=== PATIENT | female | born 1930 | race Caucasian/White ===

== ENCOUNTER → 2016-11-20 | Outpatient (REF) | payer MEDICARE ==
[~2016-11-20] MED LIST: /WARF25TA OR; ACET50TA PO; DOCU100C PO; LEVO75TA3 PO; PERC5TAB PO; POTA10TA PO
[2016-11-20 17:13] LABS: CALCIUM LEVEL 9.7 MG/DL (8.8-10.2); CREATININE FOR GFR 1.46 MG/DL (0.55-1.02); GLOMERULAR FILTRATION RATE 36.3 (>32); POTASSIUM SERUM 4.4 MEQ/L (3.5-5.1)
== END ==
LOC: M SFHCCLAY 13:32
PROVIDERS: ATTEND Family Medicine
DX: I10 Essential (primary) hypertension (principal); E11.9 Type 2 diabetes mellitus without complications
CPT/HCPCS: 80048; 81001; 82043; 83036; G0463

== ENCOUNTER → 2017-03-31 | Outpatient (CLI) | payer MEDICARE ==
--- NOTE | 2017-03-31 20:23 | ECHO ---
DATE OF PROCEDURE: 03/31/2017 REFERRING PHYSICIAN: Dr. Phuc Hassan The study was performed on 03/31/2017 on an outpatient basis for indication heart murmur. The patient measures 150 cm and weighs 67 kg. DIMENSIONS: IVS: 1.3 LV: 3.8 LVPW: 1.3 LA: 4.2 Aorta: 3.2 FINDINGS: The study is of rather difficult technical quality. Left ventricle is of normal size and hyperdynamic contractility, estimated LVEF 70-75%. Mild LVH is noted. Right ventricle appears normal. Left atrium is severely enlarged. Right atrium is normal size. Aortic valve is tricuspid, it is mildly sclerotic but mobility is preserved. Mitral valve is poorly visualized. It is obscured by very prominent calcifications in bases in both mitral leaflets, especially at the base of posterior mitral leaflet. There is very large dense calcifications that measures 2.2 x 1.2 cm in diameter. I cannot provide much information on leaflet mobility. Tricuspid valve appears normal. Pulmonic valve was not well seen. No pericardial effusion is noted. Inferior vena cava is normal size. Aortic root is normal. Aortic arch and abdominal aorta were not well seen. Doppler interrogation of aortic valve reveals no stenosis and trace insufficiency. There is probably moderately severe mitral insufficiency and mild mitral stenosis with mean gradient across the mitral valve 4 and peak gradient 11 mmHg. Trace tricuspid insufficiency is seen. Calculated pulmonary artery pressure is within normal limits. Mitral inflow pattern and tissue Doppler imaging of mitral annulus revealed grade 2 diastolic dysfunction with very low tissue Doppler velocities of mitral annulus. CONCLUSIONS: 1. The study is of acceptable technical quality. 2. Normal left ventricle (LV) size with mild left ventricular hypertrophy (LVH) and hyperdynamic LV systolic function. Grade 2 diastolic dysfunction. 3. Aortic sclerosis but no significant stenosis and only trace insufficiency. 4. Very dramatic calcifications in the mitral valve with resulting moderately severe insufficiency and mild stenosis. 5. Likely normal central venous pressure and normal pulmonary artery pressure. COMMENTS: Subacute bacterial endocarditis (SBE) prophylaxis is not recommended. 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 [facility]
== END ==
LOC: M CARPUL 09:24
PROVIDERS: ATTEND Family Medicine
DX: R01.1 Cardiac murmur, unspecified (principal)

== ENCOUNTER → 2017-07-01 | Outpatient (REF) | payer MEDICARE ==
[2017-07-01 16:48] LABS: HEMATOCRIT 38.1 % (36.0-47.0); HEMOGLOBIN 12.3 g/dl (12.0-16.0); MEAN CORPUSCULAR HEMOGLOBIN 30.6 pg (27.0-33.0); MEAN CORPUSCULAR HGB CONC 32.3 g/dl (32.0-36.5); MEAN CORPUSCULAR VOLUME 94.8 fl (80.0-96.0); PLATELET COUNT, AUTOMATED 231 10^3/uL (150-450); RED BLOOD COUNT 4.02 10^6/uL (4.00-5.40); RED CELL DISTRIBUTION WIDTH 12.6 % (11.5-14.5)
[2017-07-01 17:13] LABS: ESTIMATED AVERAGE GLUCOSE 128 MG/DL (60-110); HEMOGLOBIN A1c 6.1 %
[2017-07-01 17:20] LABS: ANION GAP 9 MEQ/L (8-16); BLOOD UREA NITROGEN 22 MG/DL (7-18); CALCIUM LEVEL 8.8 MG/DL (8.8-10.2); CARBON DIOXIDE LEVEL 27 MEQ/L (21-32); CHLORIDE LEVEL 105 MEQ/L (98-107); CREATININE FOR GFR 1.33 MG/DL (0.55-1.02); GLOMERULAR FILTRATION RATE 40.4 (>32); GLUCOSE, FASTING 100 MG/DL (83-110); POTASSIUM SERUM 4.5 MEQ/L (3.5-5.1); SODIUM LEVEL 141 MEQ/L (136-145)
== END ==
LOC: M SFHCCLAY 13:31
DX: J45.20 Mild intermittent asthma, uncomplicated (principal); R06.09 Other forms of dyspnea; I34.0 Nonrheumatic mitral (valve) insufficiency; E11.9 Type 2 diabetes mellitus without complications; Z23 Encounter for immunization
CPT/HCPCS: 84443

== ENCOUNTER → 2017-11-05 | Outpatient (CLI) | payer MEDICARE | LOC: M CLY 12:20 | DX: M85.852 Other specified disorders of bone density and structure, left thigh (principal); Z98.890 Other specified postprocedural states | CPT/HCPCS: 73502; G0463 ==

== ENCOUNTER → 2018-02-02 | Outpatient (REF) | payer MEDICARE ==
[2018-02-02 16:49] LABS: HEMATOCRIT 36.3 % (36.0-47.0); HEMOGLOBIN 12.1 g/dl (12.0-15.5); MEAN CORPUSCULAR HEMOGLOBIN 30.2 pg (27.0-33.0); MEAN CORPUSCULAR HGB CONC 33.3 g/dl (32.0-36.5); MEAN CORPUSCULAR VOLUME 90.5 fl (80.0-96.0); PLATELET COUNT, AUTOMATED 241 10^3/uL (150-450); RED BLOOD COUNT 4.01 10^6/uL (4.00-5.40); RED CELL DISTRIBUTION WIDTH 12.6 % (11.5-14.5); WHITE BLOOD COUNT 6.5 10^3/uL (4.0-10.0)
[2018-02-02 18:10] LABS: ALBUMIN 3.8 GM/DL (3.2-5.2); ALBUMIN/GLOBULIN RATIO 1.09 (1.00-1.93); ALKALINE PHOSPHATASE 66 U/L (45-117); ALT/SGPT 19 U/L (12-78); ANION GAP 10 MEQ/L (8-16); AST/SGOT 17 U/L (7-37); BILIRUBIN,TOTAL 0.6 MG/DL (0.2-1.0); BLOOD UREA NITROGEN 22 MG/DL (7-18); CALCIUM LEVEL 9.4 MG/DL (8.8-10.2); CARBON DIOXIDE LEVEL 26 MEQ/L (21-32); CHLORIDE LEVEL 101 MEQ/L (98-107); CREATININE FOR GFR 1.38 MG/DL (0.55-1.30); FREE T4 1.66 NG/DL (0.76-1.46); GLOMERULAR FILTRATION RATE 38.7 (>32); GLUCOSE, FASTING 119 MG/DL (70-100); POTASSIUM SERUM 3.8 MEQ/L (3.5-5.1); SODIUM LEVEL 137 MEQ/L (136-145); THYROID STIMULATING HORMONE 0.032 uIU/ML (0.358-3.740); TOTAL PROTEIN 7.3 GM/DL (6.4-8.2)
== END ==
LOC: M SFHCCLAY 09:43
DX: R63.4 Abnormal weight loss (principal); K86.2 Cyst of pancreas
CPT/HCPCS: 84443

== ENCOUNTER → 2018-02-02 | Outpatient (CLI) | payer MEDICARE | LOC: M CLY 10:34 | DX: R91.8 Other nonspecific abnormal finding of lung field (principal); M41.84 Other forms of scoliosis, thoracic region; R63.4 Abnormal weight loss | CPT/HCPCS: 71046; 84443 ==

== ENCOUNTER → 2018-02-04 | Outpatient (CLI) | payer MEDICARE ==
[~2018-02-04] MED LIST changes: -/WARF25TA OR; -ACET50TA PO; -DOCU100C PO; +GASTROGRAFIN SOLUTION 30ML (Q9963) As Ordered; +ISOVUE-370 76% 100ML VIAL (Q9967) As Ordered; -LEVO75TA3 PO; -PERC5TAB PO; -POTA10TA PO
== END ==
LOC: M RAD 13:29
DX: R63.4 Abnormal weight loss (principal); R93.8 Abnormal findings on diagnostic imaging of other specified body structures; J84.10 Pulmonary fibrosis, unspecified; K57.30 Diverticulosis of large intestine without perforation or abscess without bleeding; K86.2 Cyst of pancreas; K55.1 Chronic vascular disorders of intestine
CPT/HCPCS: Q9963

== ENCOUNTER → 2018-06-23 | Outpatient (REF) | payer MEDICARE ==
[2018-06-23 18:33] LABS: ANION GAP 8 MEQ/L (8-16); BLOOD UREA NITROGEN 27 MG/DL (7-18); CALCIUM LEVEL 9.1 MG/DL (8.8-10.2); CARBON DIOXIDE LEVEL 28 MEQ/L (21-32); CHLORIDE LEVEL 106 MEQ/L (98-107); CREATININE FOR GFR 1.52 MG/DL (0.55-1.30); FREE T4 1.34 NG/DL (0.76-1.46); GLOMERULAR FILTRATION RATE 34.5 (>32); GLUCOSE, FASTING 137 MG/DL (70-100); POTASSIUM SERUM 3.9 MEQ/L (3.5-5.1); SODIUM LEVEL 142 MEQ/L (136-145); THYROID STIMULATING HORMONE 0.115 uIU/ML (0.358-3.740)
[2018-06-23 19:09] LABS: ESTIMATED AVERAGE GLUCOSE 137 MG/DL (60-110); HEMOGLOBIN A1c 6.4 %
== END ==
LOC: M SFHCCLAY 10:51
DX: E03.9 Hypothyroidism, unspecified (principal); I10 Essential (primary) hypertension; E11.9 Type 2 diabetes mellitus without complications
CPT/HCPCS: 84443

== ENCOUNTER → 2018-08-11 | Outpatient (REF) | payer MEDICARE ==
[~2018-08-11] MED LIST changes: +/WARF25TA OR; +ACET50TA PO; +DOCU100C PO; -GASTROGRAFIN SOLUTION 30ML (Q9963) As Ordered; -ISOVUE-370 76% 100ML VIAL (Q9967) As Ordered; +LEVO75TA3 PO; +PERC5TAB PO; +POTA10TA PO
[2018-08-11 12:13] LABS: CALCIUM LEVEL 9.3 MG/DL (8.8-10.2); CREATININE FOR GFR 1.47 MG/DL (0.55-1.30); FREE T4 1.07 NG/DL (0.76-1.46); GLOMERULAR FILTRATION RATE 35.9 (>32); POTASSIUM SERUM 3.7 MEQ/L (3.5-5.1); THYROID STIMULATING HORMONE 1.73 uIU/ML (0.358-3.740)
== END ==
LOC: M SFHCCLAY 09:36
PROVIDERS: ATTEND Family Medicine
DX: E03.9 Hypothyroidism, unspecified (principal)

== ENCOUNTER → 2018-11-05 | Outpatient (CLI) | payer MEDICARE ==
[~2018-11-05] MED LIST changes: -/WARF25TA OR; -ACET50TA PO; +COUM1TAB18 OR; +MAPA500T17 PO
--- NOTE | 2018-11-05 11:45 | REP ---
REASON FOR EXAM: Cough. COMPARISON: Multiple, the latest 02/02/2018. Cardiomediastinal silhouette is unchanged. Mitral annular calcifications are noted status quo. The heart is not enlarged. There is parenchymal fibrotic change status quo. No acute patchy parenchymal opacities or pleural effusions have developed. There is no change in the osseous structures. IMPRESSION: Stable chronic changes as described above.
== END ==
LOC: M CLY 10:47
PROVIDERS: ATTEND Family Medicine
DX: R05 Cough (principal); E11.9 Type 2 diabetes mellitus without complications; E03.9 Hypothyroidism, unspecified; I10 Essential (primary) hypertension

== ENCOUNTER → 2018-11-05 | Outpatient (REF) | payer MEDICARE ==
[2018-11-05 17:09] LABS: HEMATOCRIT 43.4 % (36.0-47.0); HEMOGLOBIN 14.3 g/dl (12.0-15.5); MEAN CORPUSCULAR HEMOGLOBIN 30.4 pg (27.0-33.0); MEAN CORPUSCULAR HGB CONC 32.9 g/dl (32.0-36.5); MEAN CORPUSCULAR VOLUME 92.3 fl (80.0-96.0); PLATELET COUNT, AUTOMATED 268 10^3/uL (150-450); WHITE BLOOD COUNT 7.7 10^3/uL (4.0-10.0)
[2018-11-05 17:27] LABS: BILIRUBIN,TOTAL 0.6 MG/DL (0.2-1.0); CALCIUM LEVEL 9.7 MG/DL (8.8-10.2); CREATININE FOR GFR 1.49 MG/DL (0.55-1.30); FREE T4 1.34 NG/DL (0.76-1.46); GLOMERULAR FILTRATION RATE 35.3 (>32); POTASSIUM SERUM 3.5 MEQ/L (3.5-5.1); THYROID STIMULATING HORMONE 2.05 uIU/ML (0.358-3.740); TOTAL PROTEIN 7.9 GM/DL (6.4-8.2)
[2018-11-05 17:43] LABS: MAU/CREAT RATIO 85.9 MCG/MG (0.0-30.0)
== END ==
LOC: M SFHCCLAY 10:40
PROVIDERS: ATTEND Family Medicine
DX: E11.9 Type 2 diabetes mellitus without complications (principal); E03.9 Hypothyroidism, unspecified; I10 Essential (primary) hypertension

== ENCOUNTER → 2019-02-18 | Outpatient (REF) | payer MEDICARE ==
[2019-02-18 16:54] LABS: CALCIUM LEVEL 9.8 MG/DL (8.8-10.2); CHOLESTEROL RISK RATIO 3.89 (<5); CREATININE FOR GFR 1.7 MG/DL (0.55-1.30); GLOMERULAR FILTRATION RATE 30.3 (>32); POTASSIUM SERUM 3.8 MEQ/L (3.5-5.1)
[2019-02-18 17:15] LABS: MALB URINE SIEMENS 84.4 MG/L; MAU/CREAT RATIO 59.8 MCG/MG (0.0-30.0)
[2019-02-18 17:31] LABS: HEMOGLOBIN A1c 6.9 %
== END ==
LOC: M SFHCCLAY 11:13
PROVIDERS: ATTEND Family Medicine
DX: E11.9 Type 2 diabetes mellitus without complications (principal); G24.01 Drug induced subacute dyskinesia; E03.9 Hypothyroidism, unspecified; R35.0 Frequency of micturition
CPT/HCPCS: 80048; 80061; 81002; 82043; 83036; 87086; G0463

== ENCOUNTER 2019-05-21 23:11 | Inpatient (IN) | payer MEDICARE ==
[~2019-05-21] VITALS: Ht 162.6 cm; Wt 75.4 kg
--- NOTE | 2019-05-21 23:36 | REPVR ---
PROCEDURE INFORMATION: Exam: CT Head Without Contrast Exam date and time: 05/21/2019 11:25 PM Age: 89 years old Clinical history: Altered mental status/memory loss; Confusion or disorientation; Additional Info: AMS TECHNIQUE: Imaging protocol: Computed tomography of the head without contrast. Radiation optimization: All CT scans at this facility use at least one of these dose optimization techniques: automated exposure control; mA and/or kV adjustment per patient size (includes targeted exams where dose is matched to clinical indication); or iterative reconstruction. Other technique: STROKE PROTOCOL was implemented. COMPARISON: CT Head without contrast 05/28/2012 5:46 AM FINDINGS: Limitations: Examination is limited by motion artifact. Brain: Hypodensity of the right insula and anterior right temporal lobe. Chronic ischemic changes in the right felix radiata. 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 Diffuse cerebral atrophy consistent with patient's age. No acute intracranial hemorrhage. Midline shift: No midline shift. Ventricles: Ventricles are in proportion to the degree of atrophy. Bones/joints: Unremarkable. No acute fracture. Sinuses: Visualized sinuses are unremarkable. No fluid levels. Mastoid air cells: Visualized mastoid air cells are well aerated. Soft tissues: Unremarkable. Vasculature: Atherosclerotic calcification of the carotid siphon. IMPRESSION: 1. Limited evaluation. 2. Hypodensity of the right insula and anterior right temporal lobe. It is unclear if this represents artifact versus acute ischemia. Correlate with history. 3. Chronic ischemic changes in the right felix radiata. Unchanged from prior. 4. 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 New from prior. ASSESSMENT: ASPECTS ([place] Stroke Program Early CT Score) is 8. Electronically signed by: Max Li On 05/21/2019 23:35:49 PM
[2019-05-21 23:43] LABS: HEMATOCRIT 37.7 % (36.0-47.0); HEMOGLOBIN 12.5 g/dl (12.0-15.5); MEAN CORPUSCULAR HEMOGLOBIN 30.9 pg (27.0-33.0); MEAN CORPUSCULAR HGB CONC 33.2 g/dl (32.0-36.5); MEAN CORPUSCULAR VOLUME 93.1 fl (80.0-96.0); PLATELET COUNT, AUTOMATED 277 10^3/uL (150-450); RED BLOOD COUNT 4.05 10^6/uL (4.00-5.40)
[2019-05-21] MEDS ORDERED: LIDOCAINE 2% 5ML JELLY UROJET TOP ONE (23:45)
[2019-05-21 23:57] LABS: APPEARANCE, URINE CLEAR (CLEAR); BACTERIA, URINE AUTO NEGATIVE (NEGATIVE); BILIRUBIN, URINE AUTO NEGATIVE (NEGATIVE); BLOOD, URINE BLOOD 1+ (NEGATIVE); COLOR, URINE YELLOW (YELLOW); GLUCOSE, URINE (UA) AUTO NEGATIVE (NEGATIVE); KETONE, URINE AUTO NEGATIVE (NEGATIVE); LEUKOCYTE ESTERASE, URINE AUTO NEGATIVE (NEGATIVE); MUCUS, URINE SMALL (NEGATIVE); NITRITE, URINE AUTO NEGATIVE (NEGATIVE); PROTEIN, URINE AUTO NEGATIVE (NEGATIVE); RBC, URINE AUTO 3 /HPF (0-3); SPECIFIC GRAVITY URINE AUTO 1.018 (1.002-1.035); SQUAMOUS EPITHELIAL CELL UR AU 0 /HPF (0-6); UROBILINOGEN, URINE AUTO 0.2 mg/dL (0.0-2.0); WBC, URINE AUTO 1 /HPF (0-3)
[2019-05-21 23:58] LABS: WHITE BLOOD COUNT 11.7 10^3/uL (4.0-10.0)
[2019-05-22 00:02] LABS: INR 1.12; PROTHROMBIN TIME 14.1 SECONDS (11.8-14.0)
[2019-05-22 00:03] LABS: PARTIAL THROMBOPLASTIN TIME 26.5 SECONDS (25.0-38.4)
[2019-05-22 00:17] LABS: ALBUMIN 3.3 GM/DL (3.2-5.2); ALT/SGPT 19 U/L (12-78); BILIRUBIN,DIRECT < 0.1 MG/DL (0.0-0.2); BILIRUBIN,TOTAL 0.3 MG/DL (0.2-1.0); BLOOD UREA NITROGEN 38 MG/DL (7-18); CARBON DIOXIDE LEVEL 27 MEQ/L (21-32); CHLORIDE LEVEL 105 MEQ/L (98-107); CK-MB VALUE MASS 2.6 NG/ML (<3.6); CPK CREATINE PHOSPHOKINASE 124 U/L (26-192); CREATININE FOR GFR 1.65 MG/DL (0.55-1.30); GLOMERULAR FILTRATION RATE 31.3 (>32); GLUCOSE, FASTING 182 MG/DL (70-100); POTASSIUM SERUM 3.5 MEQ/L (3.5-5.1); SODIUM LEVEL 142 MEQ/L (136-145); TROPONIN I 0.05 NG/ML (< 0.10)
[2019-05-22 00:27] LABS: ATYPICAL LYMPH 5 % (0-5); EOSINOPHILS 3 % (0-3); LYMPHOCYTES 48 % (16-44); MONOCYTES 4 % (0-5); NEUTROPHILS 40 % (28-66)
[2019-05-22 00:28] LABS: PLATELET ESTIMATE NORMAL (NORMAL)
[2019-05-22] MEDS ORDERED: SUCR1TAB56 PO ×2 (01:16)
[2019-05-22] MEDS ORDERED: FAMO1TAB11 PO (01:16)
[2019-05-22] MEDS ORDERED: GLIP5TAB8 PO (01:16)
[2019-05-22] MEDS ORDERED: HYDR25TAB PO (01:16)
[2019-05-22] MEDS ORDERED: PATIENT COMMENTS (01:16)
[2019-05-22] MEDS ORDERED: SYNT75TA PO (01:16)
[2019-05-22] MEDS ORDERED: PROBCAP14 PO (01:16)
[2019-05-22] MEDS ORDERED: AMLO5TAB6 PO (01:16)
[2019-05-22] MEDS: NS 1,000 ML IV SCH ×2 (01:56→14:46)
[2019-05-22] MEDS ORDERED: GLUCAGON FOR INJ 1 MG VIAL (J1610) SC PRN (02:00)
[2019-05-22] MEDS ORDERED: GLUCOSE 4 GM CHEW TABLET PO PRN (02:00)
[2019-05-22] MEDS ORDERED: DEXTROSE 50% 50 ML SYRINGE IV PRN (02:00)
--- NOTE | 2019-05-22 02:10 | HPEPDOC ---
General Date of Admission 05/22/19 Date of Service: May 22, 2019 Chief Complaint The patient is a 89-year-old female admitted with a reason for visit of S/S Posible Stroke. Source: Patient, Family Exam Limitations: Physical impairment Timing/Duration: 4-6 hours Severity: Severe Associated Symptoms: Unobtainable History of Present Illness Patient is 89 years old female with past mental history of hypertension, type 2 diabetes, tricuspid valve insufficiency present to the hospital unresponsive. According to family members patient was found in the bed around 10 PM unresponsive, she made some gurgling sounds, did not follow commands, had paralysis of right leg and arm. In emergency room patient was found to have mild leukocytosis, afebrile, his blood pressure was elevated to 182/80. Head CT was done and showed Hypodensity of the right insula and anterior right temporal lobe. It is unclear if this represents artifact versus acute ischemia. Chronic ischemic changes in the right felix radiata. Unchanged from prior. 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 New from previous. Home Medications Scheduled Amlodipine Besylate (Amlodipine Besylate) 5 Mg Tablet, 5 MG PO DAILY, (Reported) UNCLEAR TO WHETHER PATIENT IS TAKING THIS. IT IS AN ACTIVE PRESCRIPTION AT HER PHARMACY Famotidine (Famotidine) 20 Mg Tablet, 20 MG PO QHS, (Reported) UNCLEAR TO WHETHER PATIENT IS TAKING THIS. IT IS AN ACTIVE PRESCRIPTION AT HER PHARMACY Glipizide (Glipizide) 5 Mg Tablet, 5 MG PO DAILY, (Reported) Hydrochlorothiazide (Hydrochlorothiazide) 25 Mg Tablet, 25 MG PO DAILY, (Reported) Lactobacillus Acidophilus (Probiotic) 1 Each Capsule, 1 CAP PO DAILY, (Reported) Levothyroxine Sodium (Synthroid) 75 Mcg Tablet, 75 MCG PO DAILY, (Reported) Sucralfate (Sucralfate) 1 Gm Tablet, 1 GRAM PO TID, (Reported) Sucralfate (Sucralfate) 1 Gm Tablet, 1 GRAM PO QHS, (Reported) Miscellaneous Medications [Patient Comments] , (Reported) INFORMATION PROVIDED BY FAMILY MEMBERS. THEY STATE SHE TAKES HER MEDICATIONS DAILY. THEY PROVIDED A BAG OF MEDICATIONS THEY STATE SHE NORMALLY TAKES Allergies Coded Allergies: Sulfa (Sulfonamide Antibiotics) (Verified Allergy, Severe, throat swelling, 05/21/19) NSAIDS (Non-Steroidal Anti-Inflamma (Verified Allergy, Unknown, 05/21/19) etodolac (Verified Allergy, Unknown, 05/21/19) meloxicam (Verified Allergy, Unknown, 05/21/19) Past Medical History Medical History Type 2 diabetes, hypertension, tricuspid valve insufficiency Surgical History Cholecystectomy Family History I reviewed family history and found noncontributory Social History * Smoker: Denies Alcohol: Denies Drugs: denies A-FIB/CHADSVASC A-FIB History Current/History of A-Fib/PAF?: No Current PO Anticoag Therapy: No Review of Systems Constitutional: Reports: Other (patient is unresponsive unable to obtain) Other systems Patient is unresponsive unable to obtain Physical Examination General Exam: Positive: Other (unresponsive) Eye Exam: Positive: PERRLA ENT Exam: Positive: Atraumatic Neck Exam: Positive: Supple; Negative: JVD Chest Exam: Positive: Clear to auscultation Heart Exam: Positive: Tachycardic Telemetry: Positive: Sinus Abdomen Exam: Positive: Normal bowel sounds Extremity Exam: Negative: Clubbing, Cyanosis Skin Exam: Positive: Nl turgor and temperature Neuro Exam: Positive: Other (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, does not follow commands, no nuchal rigidity, no reflexes of right arm and right leg) Vital Signs Vital Signs Date Time Temp Pulse Resp B/P (MAP) Pulse Ox O2 Delivery O2 Flow Rate FiO2 05/22/19 01:05 110 24 148/65 (92) 98 Nasal Cannula 2.0 05/21/19 23:42 98.0 Laboratory Data Labs 24H Laboratory Tests 2 05/21/19 23:32: Bedside Glucose (Misc Panel) 178H 05/21/19 23:34: Lymphocytes # (Auto) , Nucleated Red Blood Cells % (auto) 0.0, Neutrophils 40, Lymphocytes (Manual) 48H, Monocytes (Manual) 4, Eosinophils (Manual) 3, Atypical Lymphocytes 5, Red Blood Cell Morphology NORMAL, Platelet Estimate NORMAL, Prothrombin Time 14.1H, Prothromb Time International Ratio 1.12, Activated Partial Thromboplast Time 26.5, Urine Color YELLOW, Urine Appearance CLEAR, Urine pH 5.0, Urine Specific [place] 1.018, Urine Protein NEGATIVE, Urine Glucose (Auto)(UA) NEGATIVE, Urine Ketones (Auto) NEGATIVE, Urine Blood 1+H, Urine Nitrite NEGATIVE, Urine Bilirubin NEGATIVE, Urine Urobilinogen 0.2, Urine Leukocyte Esterase (Auto) NEGATIVE, Urine WBC (Auto) 1, Urine RBC (Auto) 3, Urine Hyaline Casts (Auto) 2, Urine Bacteria (Auto) NEGATIVE, Urine Squamous Epithelial Cells 0, Urine Mucus (Auto) SMALL, Urine Sperm (Auto) , Anion Gap 10, Glomerular Filtration Rate 31.3L, Lactic Acid Level 2.3*H, Calcium Level 9.0, Total Bilirubin 0.3, Direct Bilirubin < 0.1, Aspartate Amino Transf (AST/SGOT) 16, Alanine Aminotransferase (ALT/SGPT) 19, Alkaline Phosphatase 62, Total Creatine Kinase 124, Creatine Kinase MB 2.6, Creatine Kinase MB Relative Index 2.10, Troponin I 0.05, Total Protein 7.0, Albumin 3.3, Albumin/Globulin Ratio 0.89L, Thyroid Stimulating Hormone (TSH) 3.770H CBC/BMP Laboratory Tests 05/21/19 23:34 Microbiology Microbiology 05/21/19 Blood Culture, Received Pending Assessment/Plan Patient is 89 years old female with past mental history of hypertension, type 2 diabetes, tricuspid valve insufficiency present to the hospital unresponsive. According to family members patient was found in the bed around 10 PM unresponsive, she made some gurgling sounds, did not follow commands, had paralysis of right leg and arm. In emergency room patient was found to have mild leukocytosis, afebrile, his blood pressure was elevated to 182/80. Head CT was d one and showed Hypodensity of the right insula and anterior right temporal lobe. Most likely patient developed ischemic stroke. Problems (1) Ischemic stroke diagnosed during current admission Status: Acute Problem Text: Most likely massive ischemic stroke Patient is not candidate for TPA due to advanced age MRI, MRA, ECHO Nothing by mouth for now. By mouth meds on hold Aspirin per rectum Consider neurologist consult in the morning Palliative care consult (2) Right sided weakness Status: Acute Problem Text: See above Plan / VTE VTE Prophylaxis Ordered?: Yes OSCAR MCINTYRE DO May 22, 2019 02:10
[2019-05-22 03:33] VITALS: BP 152/67
--- NOTE | 2019-05-22 06:33 | ECGEPIP ---
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
[2019-05-22 06:49] VITALS: BP 130/58
[2019-05-22] MEDS ORDERED: HumaLOG INSULIN (NovoLOG) PER UNIT SC SCH (07:30)
[2019-05-22 08:00] VITALS: BP 145/65
[2019-05-22] MEDS ORDERED: HEPARIN SOD (PORCINE) 5000 UNITS/ML VIAL SC SCH (09:00)
[2019-05-22] MEDS ORDERED: ASPIRIN 300 MG SUPP PR SCH (09:00)
[2019-05-22 10:00] VITALS: BP 164/70
--- NOTE | 2019-05-22 13:19 | IPN ---
DATE: 05/22/2019 Na is seen in progressive care unit (PCU). Her family was present. We had a good discussion. She was admitted with a massive stroke. She has dense right hemiparesis and aphasia. She has not regained consciousness since coming to the emergency room. CT scan showed acute stroke. PHYSICAL EXAMINATION: She is not responding to verbal or physical stimulation. Right hemiparesis. Labored respirations. LUNGS: Rhonchorous. HEART: Regular rhythm. ABDOMEN: Soft, nontender. EXTREMITIES: No peripheral edema. Nursing staff said her right leg moved when they were providing some nursing care. She did not move her right side for me on examination. LABORATORIES: No CBC ordered. No electrolytes ordered. Blood sugar has been in the 100s. IMPRESSION: 1. Large left hemispheric stroke with aphasia, right hemiparesis and unresponsiveness. Prognosis is poor. I discussed this frankly with the patient's daughter and grandson. She has DO NOT RESUSCITATE status. They are considering comfort measures. We are going to get a CT of the head today and continue her IV fluids. I did order laboratories for the morning. Unless she has a significant recovery, I anticipate that they will want comfort measures only status for this patient, which is appropriate.
[2019-05-22] MEDS ORDERED: SALIVA SUBSTITUTE(MOUTHKOTE) BTL MT PRN (15:00)
[2019-05-22 16:00] VITALS: BP 125/60
[2019-05-22] MEDS ORDERED: SCOPOLAMINE 1MG TRANSDERMAL PATCH TOP PRN (18:30)
[2019-05-22] MEDS ORDERED: ACETAMINOPHEN 650 MG SUPP PR PRN (18:30)
[2019-05-22] MEDS ORDERED: ONDANSETRON 4MG/2ML VIAL (J2405) IV PRN (18:30)
[2019-05-22] MEDS: MORPHINE 2 MG/ML 1ML VIAL (J2270) IV PRN (21:03)
[2019-05-23] MEDS: MORPHINE 2 MG/ML 1ML VIAL (J2270) IV PRN (02:51)
[2019-05-23] MEDS ORDERED: LEVOTHYROXINE 75MCG TABLET (0.075MG) PO SCH (06:00)
--- NOTE | 2019-05-23 06:45 | IPN ---
DATE: 05/22/2019 Na has deteriorated as the day has gone by. Nursing staff called me around 6:00 p.m. that she was tachypneic, shallow respirations, respirations were agonal. I called Na's daughter Nasrin. We discussed her deterioration. 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
--- NOTE | 2019-05-23 11:36 | IPNPDOC ---
Subjective Date Seen The patient was seen on 05/23/19. Subjective Chief Complaint/HPI stroke Events since last encounter Niece is at bedside. 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 Appears comfortable. 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 Appears comfortable. Plan/VTE VTE Prophylaxis Ordered?: No VTE Exclusion Pharmacological: Other (PIE BAKERY LABORER) VS, I&O, 24H, Fishbone Vital Signs/I&O Vital Signs Date Time Temp Pulse Resp B/P (MAP) Pulse Ox O2 Delivery O2 Flow Rate FiO2 05/22/19 17:50 2.0 05/22/19 16:39 98.4 05/22/19 16:00 89 21 125/60 (81) 99 Nasal Cannula I&O- Last 24 Hours up to 6 AM 05/23/19 06:00 Intake Total 240 ml Output Total 850 ml Balance -610 ml Laboratory Data Microbiology Microbiology 05/21/19 Blood Culture - Preliminary, Resulted No growth after 24 hours . All specim... Devorah Gan SUPERVISOR [employer] May 23, 2019 11:36
[2019-05-23] MEDS: MORPHINE SULFATE ORAL SOLN 10 MG/5 ML UD SL PRN (12:44)
--- NOTE | 2019-05-24 10:03 | IPNPDOC ---
Subjective Date Seen The patient was seen on 05/24/19. 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 no adverse events since yesterday. has prn medications. 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 Appears comfortable. Plan/VTE VTE Prophylaxis Ordered?: No VTE Exclusion Pharmacological: Other (CLINICAL LAB SPECIALIST) VS, I&O, 24H, Fishbone Vital Signs/I&O Vital Signs Date Time Temp Pulse Resp B/P (MAP) Pulse Ox O2 Delivery O2 Flow Rate FiO2 05/23/19 21:00 2.0 05/22/19 16:39 98.4 05/22/19 16:00 89 21 125/60 (81) 99 Nasal Cannula I&O- Last 24 Hours up to 6 AM 05/24/19 06:00 Intake Total 0 ml Output Total 750 ml Balance -750 ml Laboratory Data Microbiology Microbiology 05/21/19 Blood Culture - Preliminary, Resulted No Growth after 48 hours. All Specime... Devorah Gan OCEAN CLAM BOAT CAPTAIN May 24, 2019 10:03
[2019-05-24] MEDS: MORPHINE SULFATE ORAL SOLN 10 MG/5 ML UD SL PRN ×2 (11:20→18:01)
[2019-05-24] MEDS: MORPHINE 2 MG/ML 1ML VIAL (J2270) IV PRN (20:35)
[2019-05-25] MEDS: MORPHINE 2 MG/ML 1ML VIAL (J2270) IV PRN ×2 (08:51→13:41)
[2019-05-25] MEDS: LORazepam 2 MG/ML VIAL (J2060) IV PRN ×2 (12:15→14:22)
[2019-05-25] MEDS ORDERED: LORazepam 2 MG/ML VIAL (J2060) As Ordered ONE (14:17)
[2019-05-26] MEDS: MORPHINE 2 MG/ML 1ML VIAL (J2270) IV PRN ×3 (02:20→14:38)
[2019-05-26] MEDS: LORazepam 2 MG/ML VIAL (J2060) IV PRN (05:17)
--- NOTE | 2019-05-26 12:26 | IPNPDOC ---
Subjective Date Seen The patient was seen on 05/26/19. Subjective Chief Complaint/HPI She is resting comfortably today per her family. Both the family and nursing reports she was less comfortable yesterday, but they were able to work through it. There are no acute concerns today. 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 Appears comfortable. Plan/VTE VTE Prophylaxis Ordered?: No (STATE'S ATTORNEY) VTE Exclusion Pharmacological: Other (STATE'S ATTORNEY) Plan Advance Directives: DNR, Comfort care Disposition she is expected to during this admission VS, I&O, 24H, Fishbone Vital Signs/I&O Vital Signs Date Time Temp Pulse Resp B/P (MAP) Pulse Ox O2 Delivery O2 Flow Rate FiO2 05/26/19 02:20 28 05/25/19 23:03 2.0 05/25/19 13:41 Nasal Cannula 05/22/19 16:39 98.4 05/22/19 16:00 89 125/60 (81) 99 I&O- Last 24 Hours up to 6 AM 05/26/19 06:00 Intake Total 0 ml Output Total 475 ml Balance -475 ml Laboratory Data Microbiology Microbiology 05/21/19 Blood Culture - Preliminary, Resulted No Growth after 72 hours. All specime... Marvin Aleman MD May 26, 2019 12:26 pm
[2019-05-27] MEDS: MORPHINE 2 MG/ML 1ML VIAL (J2270) IV PRN ×2 (10:09→15:47)
--- NOTE | 2019-05-27 12:02 | IPNPDOC ---
Subjective Date Seen The patient was seen on 05/27/19. Subjective Chief Complaint/HPI Na remains comfortable per nursing and her family. Her family notes that her breathing is a little more rapid today. There are no acute complaints or concerns regarding her comfort. General: Reports: ROS Unobtainable Objective Physical Examination General Exam: Positive: No Acute Distress, Other (unresponsive, appears comfortable); Negative: Alert ENT Exam: Positive: Atraumatic; Negative: Mucous membr. 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 Appears comfortable. Plan/VTE VTE Prophylaxis Ordered?: No (TYPING SECRETARY) VTE Exclusion Pharmacological: Other (TYPING SECRETARY) Plan Advance Directives: DNR, Comfort care Disposition She is expected to during this admission. VS, I&O, 24H, Fishbone Vital Signs/I&O Vital Signs Date Time Temp Pulse Resp B/P (MAP) Pulse Ox O2 Delivery O2 Flow Rate FiO2 05/26/19 21:20 2.0 05/26/19 02:20 28 05/25/19 13:41 Nasal Cannula 05/22/19 16:39 98.4 05/22/19 16:00 89 125/60 (81) 99 I&O- Last 24 Hours up to 6 AM 05/27/19 06:00 Intake Total 0 ml Output Total 550 ml Balance -550 ml Laboratory Data Microbiology Microbiology 05/21/19 Blood Culture - Final, Complete NO GROWTH AFTER 5 DAYS Marvin Aleman MD May 27, 2019 12:02 pm
[2019-05-28] MEDS: MORPHINE 2 MG/ML 1ML VIAL (J2270) IV PRN ×2 (12:51→20:27)
--- NOTE | 2019-05-28 15:50 | IPNPDOC ---
Subjective Date Seen The patient was seen on 05/28/19. Subjective Chief Complaint/HPI Ms. Quiroz remains comfortable under the watchful eye of her family and the nursing staff. The family reports that they are very pleased with the support that they are getting while here. General: Reports: ROS Unobtainable Objective Physical Examination General Exam: Positive: No Acute Distress, Other (unresponsive, appears comfortable); Negative: Alert ENT Exam: Positive: Atraumatic; Negative: Mucous membr. 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 Appears comfortable. Plan/VTE VTE Prophylaxis Ordered?: No (WELDING MACHINE OPERATOR ARC) VTE Exclusion Pharmacological: Other (WELDING MACHINE OPERATOR ARC) Plan Advance Directives: DNR, Comfort care VS, I&O, 24H, Fishbone Vital Signs/I&O Vital Signs Date Time Temp Pulse Resp B/P (MAP) Pulse Ox O2 Delivery O2 Flow Rate FiO2 05/28/19 13:01 20 05/28/19 11:00 2.0 05/25/19 13:41 Nasal Cannula 05/22/19 16:39 98.4 05/22/19 16:00 89 125/60 (81) 99 I&O- Last 24 Hours up to 6 AM 05/28/19 06:00 Intake Total 0 ml Output Total 250 ml Balance -250 ml Laboratory Data Microbiology Microbiology 05/21/19 Blood Culture - Final, Complete NO GROWTH AFTER 5 DAYS Marvin Aleman MD May 28, 2019 15:50
--- NOTE | 2019-05-29 11:01 | DS.PDOC ---
Discharge Summary General Date of Admission May 22, 2019 at 1:41 am Date of Discharge 05/29/19 Primary Care Physician: Phuc Hassan MD Attending Physician: Marvin Aleman MD Discharge Summary ADMITTING DIAGNOSES: 1. Ischemic stroke. 2. Right sided weakness. DISCHARGE DIAGNOSES/CAUSE OF : 1. Ischemic stroke. PROCEDURES PERFORMED DURING STAY: None. ADMISSION HISTORY: Ms. Quiroz was brought to the emergency department after she was found by her family in the bed around 10 PM unresponsive. At that time she reportedly made some gurgling sounds, did not follow commands, and had paralysis of right leg and arm. Please see the admission history and physical for the remaining details. HOSPITAL COURSE: She was admitted to the hospital on palliative care status/comfort measures only. We were able to keep her comfortable throughout her stay here and she did ultimately . DISCHARGE CONDITION: Morbid. IMAGING: CT of the head without contrast. Vital Signs/I&Os Vital Signs Date Time Temp Pulse Resp B/P (MAP) Pulse Ox O2 Delivery O2 Flow Rate FiO2 05/28/19 20:00 2.0 05/28/19 13:01 20 05/25/19 13:41 Nasal Cannula I&O- Last 24 Hours up to 6 AM 05/29/19 06:00 Intake Total 0 ml Output Total 125 ml Balance -125 ml Microbiology Microbiology 05/21/19 Blood Culture - Final, Complete NO GROWTH AFTER 5 DAYS Discharge Medications Scheduled Amlodipine Besylate (Amlodipine Besylate) 5 Mg Tablet, 5 MG PO DAILY, (Reported) UNCLEAR TO WHETHER PATIENT IS TAKING THIS. IT IS AN ACTIVE PRESCRIPTION AT HER PHARMACY Famotidine (Famotidine) 20 Mg Tablet, 20 MG PO QHS, (Reported) UNCLEAR TO WHETHER PATIENT IS TAKING THIS. IT IS AN ACTIVE PRESCRIPTION AT HER PHARMACY Glipizide (Glipizide) 5 Mg Tablet, 5 MG PO DAILY, (Reported) Hydrochlorothiazide (Hydrochlorothiazide) 25 Mg Tablet, 25 MG PO DAILY, (Reported) Lactobacillus Acidophilus (Probiotic) 1 Each Capsule, 1 CAP PO DAILY, (Reported) Levothyroxine Sodium (Synthroid) 75 Mcg Tablet, 75 MCG PO DAILY, (Reported) Sucralfate (Sucralfate) 1 Gm Tablet, 1 GRAM PO TID, (Reported) Sucralfate (Sucralfate) 1 Gm Tablet, 1 GRAM PO QHS, (Reported) Miscellaneous Medications [Patient Comments] , (Reported) INFORMATION PROVIDED BY FAMILY MEMBERS. THEY STATE SHE TAKES HER MEDICATIONS DAILY. THEY PROVIDED A BAG OF MEDICATIONS THEY STATE SHE NORMALLY TAKES Allergies Coded Allergies: Sulfa (Sulfonamide Antibiotics) (Verified Allergy, Severe, throat swelling, 05/21/19) NSAIDS (Non-Steroidal Anti-Inflamma (Verified Allergy, Unknown, 05/21/19) etodolac (Verified Allergy, Unknown, 05/21/19) meloxicam (Verified Allergy, Unknown, 05/21/19) Marvin Aleman MD May 29, 2019 11:01 am
== END 2019-05-29 00:30 | disposition expired | DRG 65 ==
LOC: M ED 23:11 → M ED INP 05-22 01:41 → M PCU 05-22 03:32 → M MSPAV 05-23 08:26
PROVIDERS: ADMIT Internal Medicine; ATTEND Family Medicine
DX: I63.9 Cerebral infarction, unspecified (principal); I69.351 Hemiplegia and hemiparesis following cerebral infarction affecting right dominant side; Z66 Do not resuscitate; Z51.5 Encounter for palliative care; I10 Essential (primary) hypertension; Z79.899 Other long term (current) drug therapy; Z88.2 Allergy status to sulfonamides; Z88.8 Allergy status to other drugs, medicaments and biological substances; E11.9 Type 2 diabetes mellitus without complications; I36.0 Nonrheumatic tricuspid (valve) stenosis